=== PATIENT | female | born 1995 | race Caucasian/White ===

== ENCOUNTER 2018-04-04 14:36 | Outpatient (CLI) | payer OTHER ==
[2018-04-04 15:30] LABS: APPEARANCE,URINE CLEAR; BILIRUBIN,URINE NEGATIVE (NEGATIVE); COLOR,URINE COLORLESS; GLUCOSE, URINE NEGATIVE (NEGATIVE); KETONES,URINE NEGATIVE (NEGATIVE); LEUKOCYTE ESTERASE,URINE NEGATIVE (NEGATIVE); NITRITE,URINE NEGATIVE (NEGATIVE); PROTEIN,URINE NEGATIVE (NEGATIVE); URINE SPECIFIC GRAVITY 1.003; UROBILINOGEN,URINE NEGATIVE mg/dL (<2.0)
[2018-04-04 15:50] LABS: URINE AMPHETAMINES SCREEN NEGATIVE; URINE BARBITURATES SCREEN NEGATIVE; URINE BENZODIAZEPINES SCREEN NEGATIVE; URINE COCAINE SCREEN NEGATIVE; URINE MARIJUANA (THC) SCREEN NEGATIVE; URINE METHADONE SCREEN NEGATIVE; URINE PHENCYCLIDINE SCREEN NEGATIVE
--- NOTE | 2018-04-04 16:27 | Non Stress Test Report ---
Non Stress Test Datetime Report Generated by CPN: 04/04/2018 16:27 DEMOGRAPHIC Test Number: 1 EGA NST: 32.6 INDICATION Indication for Study: Decreased Movement; Ordered by Provider MONITORING Monitor Explained: Monitor Explained; Test Explained; Patient Verbalized Understanding Time on Monitor: 04/04/2018 14:56 Time off Monitor: 04/04/2018 16:19 NST Duration: 83 NST INTERVENTIONS NST Interventions: PO Hydration; Reposition Patient Physician Notified NST: C BARROW, CNM BABY A: [id number] BABY A Movement : Present Contraction Frequency : 0 FHR Baseline : 135 Accelerations : 15X15 Decelerations : None Variability : Moderate 6-25bpm NST Review: Meets Criteria for Reactive NST NST Review and Verified By : ANNEL JUNG Results: Reactive NST REPORT Report Trigger: Send Report
== END 2018-04-04 16:27 | disposition home or self-care (01) ==
LOC: LC 14:36
PROVIDERS: ATTEND Obstetrics & Gynecology
PROC: 4A1HXCZ Monitoring of Products of Conception, Cardiac Rate, External Approach (ICD-10-PCS; principal; 2018-04-04)
DX: O36.8130 Decreased fetal movements, third trimester, not applicable or unspecified (principal); Z3A.32 32 weeks gestation of pregnancy
CPT/HCPCS: 59025; 80307; 81001

== ENCOUNTER 2019-12-29 10:41 | Emergency (ER) | payer OTHER ==
[2019-12-29 10:47] VITALS: BP 124/66
--- NOTE | 2019-12-29 11:10 | ER Document Report ---
ED Medical Screen (RME) - General Chief Complaint: Abdominal Pain Stated Complaint: ABDOMINAL PAIN Time Seen by Provider: 12/29/19 11:06 Primary Care Provider: SHANAE GILL FNP [Primary Care Provider] - Follow up as needed Notes: Patient presents 8 weeks G2, P1 complaining of lower pelvic pain and lower back pain off and on for the past week. Patient denies any vaginal bleeding or discharge. Patient denies any urinary symptoms. Patient has not yet had an ultrasound to confirm the . I have greeted and performed a rapid initial assessment of this patient. A comprehensive ED assessment and evaluation of the patient, analysis of test results and completion of the medical decision making process will be conducted by additional ED providers. TRAVEL OUTSIDE OF THE [place] IN LAST 30 DAYS: No - Related Data Allergies/Adverse Reactions: No Known Allergies Allergy (Verified 12/29/19 11:07) Physical Exam - Vital signs Vitals: Temp Pulse Resp BP Pulse Ox 97.8 F 94 16 124/66 100 12/29/19 10:47 12/29/19 10:47 12/29/19 10:47 12/29/19 10:47 12/29/19 10:47 - Abdominal Tenderness: Tender - Lower pelvic tenderness Course - Vital Signs Vital signs: Temp Pulse Resp BP Pulse Ox 97.8 F 94 16 124/66 100 12/29/19 10:47 12/29/19 10:47 12/29/19 10:47 12/29/19 10:47 12/29/19 10:47 Doctor's Discharge - Discharge Referrals: SHANAE GILL FNP [Primary Care Provider] - Follow up as needed
[2019-12-29 11:39] LABS: ABSOLUTE BASOPHILS # (AUTO) 0.1 10^3/uL (0.0-0.2); ABSOLUTE EOSINOPHILS # (AUTO) 0.3 10^3/uL (0.0-0.6); ABSOLUTE MONOCYTES (AUTO) 0.5 10^3/uL (0.1-1.4); ABSOLUTE NEUT (AUTO) 5.7 10^3/uL (1.7-8.2); BASOPHILS % (AUTO) 0.6 % (0-2); EOSINOPHILS % (AUTO) 3.3 % (0-6); HEMOGLOBIN 13.4 g/dL (12.0-15.5); LYMPHOCYTES % (AUTO) 23.2 % (13-45); MEAN CORPUSCULAR HEMOGLOBIN 30.2 pg (27.0-33.4); MEAN CORPUSCULAR HGB CONC 35.3 g/dL (32.0-36.0); MEAN CORPUSCULAR VOLUME 85 fl (80-97); MONOCYTES % (AUTO) 6.1 % (3-13); PLATELET COUNT 241 10^3/uL (150-450); RED BLOOD COUNT 4.44 10^6/uL (3.72-5.28); RED CELL DISTRIBUTION WIDTH 12.8 % (11.5-14.0); SEGMENTED NEUTROPHILS % (AUTO) 66.8 % (42-78); TOTAL CELLS COUNTED % (AUTO) 100 %; WHITE BLOOD COUNT 8.6 10^3/uL (4.0-10.5)
[2019-12-29 11:42] LABS: APPEARANCE,URINE CLEAR; BILIRUBIN,URINE NEGATIVE (NEGATIVE); COLOR,URINE YELLOW; GLUCOSE, URINE NEGATIVE (NEGATIVE); KETONES,URINE NEGATIVE (NEGATIVE); LEUKOCYTE ESTERASE,URINE NEGATIVE (NEGATIVE); NITRITE,URINE NEGATIVE (NEGATIVE); PROTEIN,URINE NEGATIVE (NEGATIVE); URINE SPECIFIC GRAVITY 1.004; UROBILINOGEN,URINE NEGATIVE mg/dL (<2.0)
[2019-12-29 11:56] LABS: ANION GAP 10 (5-19); BLOOD UREA NITROGEN 7 mg/dL (7-20); CALCIUM 9.6 mg/dL (8.4-10.2); CARBON DIOXIDE 22 mmol/L (22-30); CHLORIDE 105 mmol/L (98-107); GLUCOSE 76 mg/dL (75-110); POTASSIUM 4.2 mmol/L (3.6-5.0)
--- NOTE | 2019-12-29 11:58 | ER Document Report ---
ED GI/ - General Chief Complaint: Abdominal Pain Stated Complaint: ABDOMINAL PAIN Time Seen by Provider: 12/29/19 11:06 Primary Care Provider: SHANAE GILL FNP [NO LOCAL MD] - Follow up as needed Mode of Arrival: Ambulatory Information source: Patient Notes: 24-year-old female presents to the emergency department 2, para 1 Ab0 with approximate 8-week intrauterine states that she has been having intermittent lower abdominal pain. She has contacted her BIOINFORMATICS SCIENTIST and told that she needed to come to the emergency department for further evaluation and treatment. Patient denies bleeding, discharge, or dysuria. TRAVEL OUTSIDE OF THE [place] IN LAST 30 DAYS: No - Related Data Allergies/Adverse Reactions: No Known Allergies Allergy (Verified 12/29/19 11:07) Past Medical History - Social History Smoking Status: Never Smoker Chew tobacco use (# tins/day): No Frequency of alcohol use: None Drug Abuse: None Family History: Reviewed & Not Pertinent Patient has homicidal ideation: No Review of Systems - Review of Systems Notes: Constitutional: Negative for fever. HENT: Negative for sore throat. Eyes: Negative for visual changes. Cardiovascular: Negative for chest pain. Respiratory: Negative for shortness of breath. Gastrointestinal: Negative for abdominal pain, vomiting or diarrhea. Genitourinary: See HPI. Musculoskeletal: Negative for back pain. Skin: Negative for rash. Neurological: Negative for headaches, weakness or numbness. 10 point ROS negative except as marked above and in HPI. Physical Exam - Vital signs Vitals: Temp Pulse Resp BP Pulse Ox 97.8 F 94 16 124/66 100 12/29/19 10:47 12/29/19 10:47 12/29/19 10:47 12/29/19 10:47 12/29/19 10:47 - Notes Notes: PHYSICAL EXAMINATION: Physical Exam: General: Well-nourished well-developed 24-year-old female in no acute distress HEENT: NC/AT, pupils equal round and reactive to light, MM moist,nares clear, oropharynx clear, airway patent Neck: supple, no adenopathy, no masses. Good range of motion Lungs: clear, no wheezing, no rales no rhonchi CVS: Regular rate and rhythm no murmur gallop or rub Abdomen: Soft, active, nontender, no masses, no hepatosplenomegaly Ext: No edema, clubbing or cyanosis. Neuro: Alert and responsive, moving all 4 extremities on command, cranial nerves intact, no focal findings Skin: Intact no open lesions, no rash Course - Re-evaluation Re-evalutation: 12/29/19 12:56 Patient is doing well having no difficulties at this time. Ultrasound reveals an 8-week 4-day intrauterine with a heartbeat of 180 beats per minutes. I have shared that information with the patient explained that while she is having some intermittent episodes of discomfort Tylenol can be used to treat the pain and follow-up with her BIOINFORMATICS SCIENTIST as recommended. - Vital Signs Vital signs: Temp Pulse Resp BP Pulse Ox 97.8 F 94 16 124/66 100 12/29/19 13:33 12/29/19 10:47 12/29/19 10:47 12/29/19 10:47 12/29/19 10:47 - Laboratory Result Diagrams: 12/29/19 11:20 12/29/19 11:20 Laboratory results interpreted by me: 12/29/19 11:20 Beta HCG, Quant 36818.00 H I have reviewed laboratory data and used this information for the treatment decisions regarding the patient. - Diagnostic Test Radiology reviewed: Image reviewed, Reports reviewed Radiology results interpreted by me: 12/29/19 12:56 Obstetrics Ultrasound 12/29/19 11:09 IMPRESSION: LIVING INTRAUTERINE . EGA 8 WEEKS 1 DAY. Trimester of : First trimester - 0 to 13 weeks. Discharge - Discharge Clinical Impression: First trimester , Pelvic pain Condition: Good Disposition: HOME, SELF-CARE Instructions: Pelvic Pain in ([facility]), ([facility]) Additional Instructions: You were seen in emergency department today with a related pain in the pelvis region. Ultrasound reveals a normally developing first trimester with no complications. You may use Tylenol for the pain. Please follow-up with your BIOINFORMATICS SCIENTIST. You may return to the emergency department if you have further complications or difficulties. HOME CARE INSTRUCTIONS & INFORMATION: Thank you for choosing us for your medica l needs. We hope you're satisfied with the care you received. After you leave, you must properly care for your problem and, at the same time, observe its progress. Any condition can change. Some illnesses can change rapidly over hours or days. If your condition worsens, return to the Emergency Department or see your physician promptly. ABOUT YOUR X-RAYS AND EKG'S: If you had an EKG or X-rays taken, they have been read by the Emergency Physician. The X-rays and EKG's will also be read by a Radiologist or Hide Dyer within 24 hours. If discrepancies are noted, you will be notified by telephone. Please be certain the ED has a correct telephone number & address where you can be reached. Also, realize that some fractures or abnormalities do not show up on initial X-rays. If your symptoms continue, see your physician. ABOUT YOUR LABORATORY TEST: If you had laboratory tests, the results have been reviewed by the Emergency Physician. Some test results (for example cultures) may not be available for several days. You will be contacted if any test result shows you need additional treatment. Please be certain the ED has a correct telephone number and address where you can be reached. ABOUT YOUR MEDICATIONS: You will receive instructions on how to take your medicine on the prescription label you receive. Additional information may be provided by the Pharmacy. If you have questions afterwards, call the ED for clarification or further instructions. Some prescribed medications may cause drowsiness. Do not perform tasks such as driving a car or operating machinery without consulting your Pharmacist. If you feel you need a refill of pain medication, your condition will need re-evaluation. Please do not call for a refill of any medication. ABOUT YOUR SIGNATURE: Signature of this document acknowledges to followin. Understanding that you received emergency treatment and that you may be released before al medical problems are known or treated. Please be certain the ED has a correct phone number & address where you can be reached. 2. Acknowledgement that you will arrange for follow-up care as recommended. 3. Authorization for the Emergency Physician to provide information to your follow-up Physician in order to maximize your care. AT ANY TIME, IF YOUR SYMPTOMS CHANGE SIGNIFICANTLY OR WORSEN OR YOU DEVELOP NEW SYMPTOMS, RETURN TO THE EMERGENCY DEPARTMENT IMMEDIATELY FOR RE-EVALUATION. OUR GOAL IS TO PROVIDE EXCELLENT MEDICAL CARE! WE HOPE THAT WE HAVE MET YOUR EXPECTATIONS DURING YOUR EMERGENCY DEPARTMENT VISIT AND THAT YOU FEEL YOU HAVE RECEIVED EXCELLENT CARE! Referrals: SHANAE GILL FNP [NO LOCAL MD] - Follow up as needed
--- NOTE | 2019-12-29 12:02 | RADIOLOGY REPORT (SQ) ---
EXAM DESCRIPTION: U/S OB TRANSVAGINAL W/O DOP IMAGES COMPLETED DATE/TIME: 12/29/2019 11:51 am REASON FOR STUDY: pelvic pain COMPARISON: None. TECHNIQUE: Transabdominal static and realtime grayscale images acquired of the pelvis. Additional se lected spectral and color Doppler images recorded. All images stored on PACs. bHCG: Not available. CLINICAL DATES: 8 weeks 4 days. LIMITATIONS: None. FINDINGS: FETUS: Single Living intrauterine . ULTRASOUND EGA: 8 weeks 1 day. ULTRASOUND RUIB: 08/08/2020 EFW: Not applicable less than 20 weeks. CRL: 1.7 cm. FHR: 180 beats per minute. SURVEY: Too early to assess. AMNIOTIC FLUID: Adequate amount. PLACENTA: Not yet developed due to early gestation. SUBCHORIONIC BLEED: No. SIZE OF BLEED: Not applicable. UTERUS: No masses. No anomalies. CERVICAL LENGTH: 2.9 cm. Closed. RIGHT ADNEXA: Normal ovary with normal vascular flow. No adnexal free fluid. No adnexal masses. LEFT ADNEXA: Normal ovary with normal vascular flow. No adnexal free fluid. No adnexal masses. FREE FLUID: None. OTHER: No other significant finding. IMPRESSION: LIVING INTRAUTERINE . EGA 8 WEEKS 1 DAY. Trimester of : First trimester - 0 to 13 weeks. TECHNICAL DOCUMENTATION: JOB ID: [id number] [employer]- All Rights Reserved Reading location - IP/workstation name: [email or web address]
[2019-12-29 13:10] LABS: CHLAM PCR NOT DETECTED (NOT DETECT)
== END 2019-12-29 13:15 | disposition home or self-care (01) ==
LOC: ER 10:41
DX: O26.91 Pregnancy related conditions, unspecified, first trimester (principal); R10.2 Pelvic and perineal pain; Z3A.08 8 weeks gestation of pregnancy
CPT/HCPCS: 36415; 76817; 80048; 81001; 84702; 85025; 86900; 86901; 87491; 87591; 99284